=== PATIENT | male | born 1990 | race Two or more races ===

== ENCOUNTER → 2016-06-07 | Outpatient (CLI) | payer BC ==
[~2016-06-07] MED LIST: NKM
[2016-06-07 14:37] LABS: BASOPHILS % (AUTO) 0.9 % (0.0-2.0); EOSINOPHILS % (AUTO) 1.5 % (0.0-3.0); LYMPHOCYTES % (AUTO) 24.5 % (20.0-45.0); MEAN CORPUSCULAR HEMOGLOBIN 29.7 PG (27.0-31.0); MEAN CORPUSCULAR HGB CONC 33.1 G/DL (32.0-36.0); MEAN CORPUSCULAR VOLUME 90 FL (80-99); MEAN PLATELET VOLUME 9.1 FL (6.5-10.1); MONOCYTES % (AUTO) 7.8 % (1.0-10.0); NEUTROPHILS % (AUTO) 65.3 % (45.0-75.0); PLATELET COUNT 230 K/UL (150-450); RED BLOOD COUNT 5.22 M/UL (4.70-6.10); RED CELL DISTRIBUTION WIDTH 11.9 % (11.6-14.8); WHITE BLOOD COUNT 8.4 K/UL (4.8-10.8)
[2016-06-07 14:53] LABS: ALANINE AMINOTRANSFERASE 11 U/L (3-41); ALBUMIN/GLOBULIN RATIO 1.8 (1.0-2.7); ANION GAP 11 (5-15); ASPARTATE AMINO TRANSFERASE 16 U/L (5-40); CALCIUM 9.4 mg/dL (8.6-10.2); CARBON DIOXIDE 26 mEQ/L (20-30); CHLORIDE 102 mEQ/L (98-107); GLOMERULAR FILTRATION RATE > 60 mL/min (>60); HEMOLYSIS 7; POTASSIUM 4.5 mEQ/L (3.4-4.9); SODIUM 139 mEQ/L (135-145); TOTAL PROTEIN 7.1 g/dL (6.6-8.7)
[2016-06-07 15:04] LABS: PROTHROMBIN TIME 10.2 SEC (9.30-11.50)
== END | disposition home or self-care (01) ==
LOC: LAB 14:18
DX: C67.0 Malignant neoplasm of trigone of bladder (principal); I86.1 Scrotal varices
CPT/HCPCS: 36415; 80053; 85025; 85610; 85730

== ENCOUNTER 2017-09-04 16:35 | Emergency (ER) | payer BC ==
[~2017-09-04] VITALS: Ht 182.9 cm; Wt 86.2 kg
[2017-09-04 16:55] VITALS: BP 104/84
[2017-09-04] MEDS ORDERED: Lidocaine 1% 10mg/ml/Epi 0.005mg/ml 30ml vial INJ ONE (17:00)
[2017-09-04] MEDS ORDERED: Bacitracin Oint UD TOPIC ONE (17:00)
[2017-09-04] MEDS ORDERED: BACITRACIN15 GM TOPIC (17:51)
[2017-09-04] MEDS ORDERED: IBUPROFEN600 MG ORAL (17:51)
[2017-09-04 17:58] VITALS: BP 104/84
--- NOTE | 2017-09-04 18:55 | Emergency Room Report ---
History of Present Illness General Chief Complaint: Laceration Source: Patient Present Illness HPI The patient is a 26-year-old male presenting for left facial injury. He states that he was playing soccer today and another player's head hit his left eyebrow. He noticed immediate pain and bleeding. He denies loss of consciousness. Pain is an 8 out of 10 dull ache and does not radiate. Last tetanus shot was 3 years prior. He denies other symptoms including headache, dizziness, blurred vision, neck pain Allergies: Coded Allergies: No Known Allergies (Verified Allergy, Unknown, 12/22/07) Patient History Past Medical History: see triage record Pertinent Family History: none Reviewed Nursing Documentation: PMH: Agreed; PSxH: Agreed Nursing Documentation-PMH Past Medical History: No Stated History Hx Cardiac Problems: No Hx Cancer: No Hx Gastrointestinal Problems: No Hx Neurological Problems: No Review of Systems All Other Systems: negative except mentioned in HPI Physical Exam Vital Signs Date Time Temp Pulse Resp B/P (MAP) Pulse Ox O2 Delivery O2 Flow Rate FiO2 09/04/17 16:41 98.4 89 17 104/84 97 Room Air 98.4 Sp02 EP Interpretation: reviewed, normal General Appearance: no apparent distress, alert, GCS 15, non-toxic Head: normocephalic Eyes: bilateral eye normal inspection, bilateral eye PERRL ENT: hearing grossly normal, normal pharynx, no angioedema, normal voice Neck: full range of motion, supple/symm/no masses Respiratory: chest non-tender, lungs clear, normal breath sounds, speaking full sentences Musculoskeletal: back normal, gait/station normal, normal range of motion, non- tender Neurologic: alert, oriented x3, responsive, motor strength/tone normal, sensory intact, speech normal Psychiatric: judgement/insight normal, memory normal, mood/affect normal, no suicidal/homicidal ideation Skin: laceration - 4cm linear laceration vertically through mid eyebrow Lymphatic: no adenopathy Procedures Laceration/Wound Repair Laceration/Wound Repair : Consent: Verbal Wound Location: face Wound's Depth, Shape: into muscle, linear Wound Length (cm): 4 Wound Explored: clean Irrigated w/ Saline (ccs): 100 Betadine Prep?: Yes Anesthesia: 1% Lidocaine, Lidocaine w/ Epi Volume Anesthetic (ccs): 5 Wound Debrided: minimal Wound Repaired With: sutures Suture Size/Type: 6:0, proline Number of Sutures: 7 Layer Closure?: Yes Deep Layer Suture Size/Type: 5:0, chromic Number Deep Layer Sutures: 3 Sterile Dressing Applied?: Yes Splint Applied?: No Sling Applied?: No Patient Tolerated: Well Complications: None Medical Decision Making PA Attestation Dr. Bocanegra is my supervising physician. Patient management was discussed with my supervising physician Diagnostic Impression: Primary Impression: Facial laceration Qualified Codes: S01.81XA - Laceration without foreign body of other part of head, initial encounter ER Course The patient is a 26-year-old male presenting for left facial injury. Ddx considered include but not limited to fracture, tendon/ligament injury, avulsion, nerve damage PE: NAD Physical 4 cm linear laceration vertically through the mid left eyebrow. Minimal bleeding. Appears to be through muscle. Eyelid not affected The wound was irrigated with normal saline and cleaned with betadine. A 27g needle was used to administer 5mL of lidocaine w. epi for local anaesthesia. 7 sutures were placed with 6-0 proline. 3 deep sutures placed. The wound was well approximated and the patient tolerated the procedure well. The wound was then cleaned and bacitracin was applied. The patient will be discharged home with suture care instructions and ER precautions Last Vital Signs Date Time Temp Pulse Resp B/P (MAP) Pulse Ox O2 Delivery O2 Flow Rate FiO2 09/04/17 17:58 98.4 77 17 104/84 98 Room Air 98.4 Status: improved Disposition: HOME, SELF-CARE Condition: Improved Scripts Bacitracin (Bacitracin) 28.4 Gm Oint...g. 1 APPLIC TOPIC THREE TIMES A DAY, #28 GM Prov: ARGENIS CHIANG P.A. 09/04/17 Ibuprofen* (MOTRIN*) 600 Mg Tablet 600 MG ORAL Q8H PRN for For Pain, #30 TAB 0 Refills Prov: TERZIANARGENIS P.A. 09/04/17 Patient Instructions: Facial Laceration Additional Instructions: I discussed my findings with the patient. All questions and concerns have been answered. Treatment and medication compliance have been addressed. I advised the patient that they need to follow up with PMD in 5-7 days for wound check and suture removal. If you are unable to see PMD, return to the ED in 5-7 days. Return to ED if pain remains or worsens, you notice discharge from the wound, the wound continues to bleed, the suture/s fall out, you notice a fever or chills, or for any reason. Patient is advised to keep the wound clean and apply an antibacterial ointment. Patient verbalized understanding of discharge instructions. ARGENIS CHIANG Sep 04, 2017 18:55
== END 2017-09-04 17:59 | disposition home or self-care (01) ==
LOC: EMR 17:00
DX: S01.81XA Laceration without foreign body of other part of head, initial encounter (principal); W50.0XXA Accidental hit or strike by another person, initial encounter; Y93.66 Activity, soccer; Y92.9 Unspecified place or not applicable
CPT/HCPCS: 96372; 99284